=== PATIENT | male | born 1980 | race Asian ===

== ENCOUNTER 2022-09-09 07:32 | Emergency (ER) | payer OTHER ==
[~2022-09-09] VITALS: Ht 177.8 cm; Wt 68.0 kg
[2022-09-09 07:34] VITALS: BP 110/82
--- NOTE | 2022-09-09 07:37 | NUR ---
BIBA to bed 08
--- NOTE | 2022-09-09 07:37 | NUR ---
Dr. Banks evaluating pt at bedside
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
[2022-09-09] MEDS ORDERED: ONDANSETRON 4 MG ODT PO ONE (08:00)
[2022-09-09] MEDS ORDERED: ACETAMINOPHEN 325 MG TAB PO ONE (08:00)
--- NOTE | 2022-09-09 08:12 | NUR ---
Patient to CT via gurney.
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
--- NOTE | 2022-09-09 08:21 | NUR ---
Pt returned from CT via [facility].
--- NOTE | 2022-09-09 08:24 | NUR ---
[place] [employer] at bedside with patient's son.
[2022-09-09] MEDS ORDERED: NAPR-1704 PO (08:54)
[2022-09-09] MEDS ORDERED: ONDA-188 PO (08:57)
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
== END 2022-09-09 09:07 | disposition home or self-care (01) ==
LOC: MED 07:32
DX: S39.012A Strain of muscle, fascia and tendon of lower back, initial encounter (principal); S09.90XA Unspecified injury of head, initial encounter; M54.2 Cervicalgia; Z79.899 Other long term (current) drug therapy; V89.2XXA Person injured in unspecified motor-vehicle accident, traffic, initial encounter; Y93.89 Activity, other specified; Y92.89 Other specified places as the place of occurrence of the external cause; Y99.8 Other external cause status
CPT/HCPCS: 70450; 99283; Q0162; 99284